=== PATIENT | female | born 1970 | race Caucasian/White ===

== ENCOUNTER → 2023-02-18 | Outpatient (CLI) | payer OTHER ==
[~2023-02-18] VITALS: Ht 157.5 cm; Wt 57.2 kg
[2023-02-18 08:51] VITALS: BP 118/78; PULSE 98; TEMP 98
== END ==
LOC: COL.ER 07:58
DX: Z29.14 Encounter for prophylactic rabies immune globulin (principal); Z28.310 Unvaccinated for COVID-19